=== PATIENT | female | born 1960 | race Asian ===

== ENCOUNTER → 2021-03-05 | Outpatient (CLI) | payer OTHER | LOC: COL.RAD 07:54 | DX: K31.84 Gastroparesis (principal) | CPT/HCPCS: A9541 ==

== ENCOUNTER → 2021-03-18 | Outpatient (CLI) | payer OTHER | LOC: COL.RAD 07:43 | DX: K80.20 Calculus of gallbladder without cholecystitis without obstruction (principal); R14.0 Abdominal distension (gaseous) ==

== ENCOUNTER 2023-01-21 10:23 | Day surgery (SDC) | payer OTHER ==
[~2023-01-21] VITALS: Ht 157.5 cm; Wt 62.2 kg
[2023-01-21] MEDS ORDERED: CRESTOR 10MG10 MG (11:24)
[2023-01-21] MEDS ORDERED: PROTONIX 40MG T40 MG PO (11:24)
[2023-01-21] MEDS ORDERED: PRINIVIL10 MG PO (11:25)
[2023-01-21] MEDS ORDERED: PROBIOTIC BLEN1 EACH PO (11:26)
[2023-01-21 11:28] VITALS: BP 135/73; PULSE 58; TEMP 97
[2023-01-21 12:55] VITALS: BP 138/86; PULSE 64; TEMP 97.6
[2023-01-21 13:10] VITALS: BP 145/85; PULSE 67
[2023-01-21 13:25] VITALS: BP 148/83; PULSE 62
--- NOTE | 2023-01-21 15:54 | NUR ---
5441 - 7493: PT TO RECOVERY BAY FROM ENDO [facility] S/P EGD PLACED ON MONITOR, VSS ON RA, A&O, NAD RECEIVED REPORT AND ASSUMED CARE OF PT FROM ENDO PULPER WILL PICK HER UPON DC MD IN TO SPEAK WITH PT; TOLERATING PO WELL PT HAS REMAINED A&O, NAD, VSS ON RA, TOLERATING PO, IS WITHOUT SIGNIFICANT COMPLAINT, WITH STEADY GAIT THRU OUT ENDO STAY IV D/C'D. D/C INSTRUCTIONS, ANY FOLLOW UP REVIEWED AND HANDED TO PT. ALL QUESTIONS AND CONCERNS ADDRESSED TO PT SATISFACTION. TAKEN TO EXIT VIA W/C WITH ALL BELONGINGS AND PAPERWORK IN HAND BY ENDO STAFF
== END 2023-01-21 13:45 | disposition home or self-care (01) ==
LOC: SDCO 10:23
DX: K22.70 Barrett's esophagus without dysplasia (principal); K21.9 Gastro-esophageal reflux disease without esophagitis; F17.210 Nicotine dependence, cigarettes, uncomplicated; Z79.899 Other long term (current) drug therapy
CPT/HCPCS: J2704; J7120